=== PATIENT | female | born 1990 | race African-American/Black ===

== ENCOUNTER 2017-09-14 12:11 | Emergency (ER) | payer MEDICAID ==
[~2017-09-14] VITALS: Ht 170.2 cm; Wt 59.0 kg
--- NOTE | 2017-09-14 12:29 | Emergency Room Report ---
History of Present Illness General Chief Complaint: Abdominal Pain Source: Patient Present Illness HPI 26-year-old female presents to the emergency department complaining of 10 out of 10 in severity upper right quadrant abdominal pain and vomiting which has progressed to contain blood. Patient states her symptoms have been ongoing for the past 4 days. Patient states she was recently evaluated and discharged from see emergency department yesterday. Patient states that within 3 hours of being discharged she began vomiting again was unable to take her medications. She denies chest pain or shortness of breath. Patient reports history of type 2 diabetes she takes insulin and states she does not check her sugar regularly. She denies constipation or diarrhea. Denies fevers or chills. Denies , dysuria, hematuria, urinary frequency. Denies CP, Palpitations, LOC, AMS, dizziness, Changes in Vision, Sensation, paresthesias, or a sudden severe headache. Allergies: Coded Allergies: No Known Allergies (Unverified , 09/14/17) Patient History Past Medical History: see triage record Past Surgical History: none Pertinent Family History: none Last Menstrual Period: 09/06/17 Now: No : 2 Para: 1 Reviewed Nursing Documentation: PMH: Agreed; PSxH: Agreed Nursing Documentation-PMH Hx Diabetes: Yes Hx Gastrointestinal Problems: Yes - ulcers Review of Systems All Other Systems: negative except mentioned in HPI Physical Exam Vital Signs Date Time Temp Pulse Resp B/P (MAP) Pulse Ox O2 Delivery O2 Flow Rate FiO2 09/14/17 12:19 98.0 86 18 151/98 100 Room Air 98.1 Sp02 EP Interpretation: reviewed, normal General Appearance: no apparent distress, alert, GCS 15, non-toxic Head: normocephalic, atraumatic Eyes: bilateral eye normal inspection, bilateral eye PERRL ENT: hearing grossly normal, normal voice Neck: full range of motion Respiratory: chest non-tender, lungs clear, normal breath sounds, speaking full sentences Cardiovascular #1: regular rate, rhythm Gastrointestinal: normal bowel sounds, soft, non-distended, no guarding, tenderness - mild RUQ ttp Rectal: deferred Genitourinary: normal inspection, no CVA tenderness Musculoskeletal: back normal, gait/station normal, normal range of motion, non- tender Neurologic: alert, oriented x3, responsive, motor strength/tone normal, sensory intact, speech normal, grossly normal Psychiatric: judgement/insight normal Skin: normal color, no rash, warm/dry, well hydrated Medical Decision Making PA Attestation Dr. Hawkins is my supervising Physician whom patient management has been discussed with. Diagnostic Impression: Primary Impression: Cyclical vomiting Qualified Codes: G43.A0 - Cyclical vomiting, not intractable Additional Impression: Blood glucose elevated ER Course 26-year-old female presents to the emergency department complaining of 10 out of 10 in severity upper right quadrant abdominal pain and vomiting which has progressed to contain blood. Patient states her symptoms have been ongoing for the past 4 days. Patient states she was recently evaluated and discharged from see emergency department yesterday. Patient states that within 3 hours of being discharged she began vomiting again was unable to take her medications. She denies chest pain or shortness of breath. Patient reports history of type 2 diabetes she takes insulin and states she does not check her sugar regularly. She denies constipation or diarrhea. Denies fevers or chills. Denies , dysuria, hematuria, urinary frequency. Denies CP, Palpitations, LOC, AMS, dizziness, Changes in Vision, Sensation, paresthesias, or a sudden severe headache. Ddx considered but are not limited to Diverticulitis, acute appy, diarrhea,UC, PUD, GE, pancreatitis, gallstone,Gastritis, THC cyclical vomiting, hyperglycemia just to name a few. Vital signs: are WNL, pt. is afebrile H&PE are most consistent with Cyclical Vomiting in the presence of elevated glucose and mild ketosis. ORDERS: -Bedside Accu-check: 313 CBC : leukocytosis most likely reactive from vomiting. -CMP: elevated glucose: 340 , normal CO2, mild elevation in anion gap. -Acetone: positive-small -lipase, : WNL -UA: presence of protein , glucose and ketones. -Urine HCG: Negative -UDS: positive for THC and barbiturates. ED INTERVENTIONS: - -1 Liter NS Bolus IV x 2 - Zofran IV -Haldol IM -Viscous Lidocaine PO DISCHARGE: At this time pt. is stable for d/c to home. Will provide printed patient care instructions, and any necessary prescriptions. Care plan and follow up instructions have been discussed with the patient prior to discharge. Labs Test 09/14/17 12:30 09/14/17 12:57 Urine Color Pale yellow Urine Appearance Clear Urine pH 6 (4.5-8.0) Urine Specific [place] 1.015 (1.005-1.035) Urine Protein 2+ (NEGATIVE) Urine Glucose (UA) 4+ (NEGATIVE) Urine Ketones 4+ (NEGATIVE) Urine Occult Blood Negative (NEGATIVE) Urine Nitrite Negative (NEGATIVE) Urine Bilirubin Negative (NEGATIVE) Urine Urobilinogen Normal MG/DL (0.0-1.0) Urine Leukocyte Esterase 1+ (NEGATIVE) Urine RBC 0-2 /HPF (0 - 2) Urine WBC 0-2 /HPF (0 - 2) Urine Squamous Epithelial Cells None /LPF (NONE/OCC) Urine Bacteria None /HPF (NONE) Urine HCG, Qualitative Negative (NEGATIVE) Urine Opiates Screen Negative (NEGATIVE) Urine Barbiturates Screen Positive (NEGATIVE) Phencyclidine (PCP) Screen Negative (NEGATIVE) Urine Amphetamines Screen Negative (NEGATIVE) Urine Benzodiazepines Screen Negative (NEGATIVE) Urine Cocaine Screen Negative (NEGATIVE) Urine Marijuana (THC) Screen Positive (NEGATIVE) White Blood Count 14.3 K/UL (4.8-10.8) Red Blood Count 5.08 M/UL (4.20-5.40) Hemoglobin 15.7 G/DL (12.0-16.0) Hematocrit 44.7 % (37.0-47.0) Mean Corpuscular Volume 88 FL (80-99) Mean Corpuscular Hemoglobin 31.0 PG (27.0-31.0) Mean Corpuscular Hemoglobin Concent 35.2 G/DL (32.0-36.0) Red Cell Distribution Width 10.9 % (11.6-14.8) Platelet Count 175 K/UL (150-450) Mean Platelet Volume 12.1 FL (6.5-10.1) Neutrophils (%) (Auto) % (45.0-75.0) Lymphocytes (%) (Auto) % (20.0-45.0) Monocytes (%) (Auto) % (1.0-10.0) Eosinophils (%) (Auto) % (0.0-3.0) Basophils (%) (Auto) % (0.0-2.0) Differential Total Cells Counted 100 Neutrophils % (Manual) 89 % (45-75) Lymphocytes % (Manual) 7 % (20-45) Monocytes % (Manual) 4 % (1-10) Eosinophils % (Manual) 0 % (0-3) Basophils % (Manual) 0 % (0-2) Band Neutrophils 0 % (0-8) Platelet Estimate Adequate Platelet Morphology Normal Red Blood Cell Morphology Normal Sodium Level 139 MMOL/L (136-145) Potassium Level 3.8 MMOL/L (3.5-5.1) Chloride Level 98 MMOL/L (98-107) Carbon Dioxide Level 24 MMOL/L (21-32) Anion Gap 17 mmol/L (5-15) Blood Urea Nitrogen 12 mg/dL (7-18) Creatinine 0.9 MG/DL (0.55-1.30) Estimat Glomerular Filtration Rate > 60 mL/min (>60) Glucose Level 340 MG/DL (74-106) Calcium Level 10.4 MG/DL (8.5-10.1) Total Bilirubin 1.1 MG/DL (0.2-1.0) Direct Bilirubin 0.2 MG/DL (0.0-0.3) Aspartate Amino Transf (AST/SGOT) 16 U/L (15-37) Alanine Aminotransferase (ALT/SGPT) 20 U/L (12-78) Alkaline Phosphatase 84 U/L (46-116) Total Protein 8.8 G/DL (6.4-8.2) Albumin 4.9 G/DL (3.4-5.0) Globulin 3.9 g/dL Albumin/Globulin Ratio 1.3 (1.0-2.7) Amylase Level 111 U/L (25-115) Lipase 100 U/L (73-393) Acetone Level Positive-small (NEGATIVE) Last Vital Signs Date Time Temp Pulse Resp B/P (MAP) Pulse Ox O2 Delivery O2 Flow Rate FiO2 09/14/17 12:19 98.0 86 18 151/98 100 Room Air 98.1 Disposition: HOME, SELF-CARE Condition: Stable Scripts Ranitidine Hcl* (ZANTAC*) 150 Mg Tablet 150 MG ORAL TWICE A DAY, #20 TAB Prov: Sudha Laboy 09/14/17 Patient Instructions: Cyclic Vomiting Syndrome, Pediatric Additional Instructions: Take medications as directed. *AVOID use of THC over the next week Follow up with a Primary Care Provider in 3-5 days, even if your symptoms have resolved. --Please review list of primary care clinics, if you do not already have a primary care provider Return sooner to ED if new symptoms occur, or current symptoms become worse. - Please note that this Emergency Department Report was dictated using [employer] client advisor technology software, occasionally this can lead to erroneous entry secondary to interpretation by the dictation equipment. Sudha Laboy September 14, 2017 12:29
[2017-09-14] MEDS ORDERED: Metoclopramide 10mg/2ml Inj IVP ONE (12:45)
[2017-09-14 12:46] LABS: APPEARANCE,URINE CLEAR; BILIRUBIN, URINE NEGATIVE (NEGATIVE); COLOR,URINE PALE YELLOW; GLUCOSE, URINE (UA) 4+ (NEGATIVE); KETONES,URINE 4+ (NEGATIVE); LEUKOCYTE ESTERASE ,URINE 1+ (NEGATIVE); NITRITE,URINE NEGATIVE (NEGATIVE); PH,URINE 6 (4.5-8.0); PROTEIN,URINE 2+ (NEGATIVE); UROBILINOGEN,URINE NORMAL MG/DL (0.0-1.0)
[2017-09-14 13:14] LABS: HEMATOCRIT 44.7 % (37.0-47.0); HEMOGLOBIN 15.7 G/DL (12.0-16.0); MEAN CORPUSCULAR VOLUME 88 FL (80-99); PLATELET COUNT 175 K/UL (150-450); RED BLOOD COUNT 5.08 M/UL (4.20-5.40); RED CELL DISTRIBUTION WIDTH 10.9 % (11.6-14.8); WHITE BLOOD COUNT 14.3 K/UL (4.8-10.8)
[2017-09-14 13:20] LABS: ANION GAP 17 mmol/L (5-15); BLOOD UREA NITROGEN 12 mg/dL (7-18); CALCIUM 10.4 MG/DL (8.5-10.1); CARBON DIOXIDE 24 MMOL/L (21-32); CHLORIDE 98 MMOL/L (98-107); CREATININE 0.9 MG/DL (0.55-1.30); POTASSIUM 3.8 MMOL/L (3.5-5.1); SODIUM 139 MMOL/L (136-145)
[2017-09-14 13:30] LABS: ALANINE AMINOTRANSFERASE 20 U/L (12-78); ALBUMIN 4.9 G/DL (3.4-5.0); ALBUMIN/GLOBULIN RATIO 1.3 (1.0-2.7); ALKALINE PHOSPHATASE 84 U/L (46-116); AMYLASE 111 U/L (25-115); ASPARTATE AMINO TRANSFERASE 16 U/L (15-37); BILIRUBIN,TOTAL 1.1 MG/DL (0.2-1.0)
[2017-09-14] MEDS ORDERED: Morphine Sulfate 4mg/ml Inj IVP ONE (13:30)
[2017-09-14 13:33] LABS: BILIRUBIN,DIRECT 0.2 MG/DL (0.0-0.3)
--- NOTE | 2017-09-14 13:37 | Diagnostic Imaging Report ---
Indication: Chest pain Technique: XRAY Chest 1v Comparison: None Findings: Heart size and mediastinal contours are within normal limits given technique. There is no focal consolidation, pneumothorax or pleural effusion. Mild scoliosis of the upper lumbar spine. Osseous structures demonstrate no acute abnormality. Impression: No radiographic evidence of acute cardiopulmonary disease.
--- NOTE | 2017-09-14 13:40 | Diagnostic Imaging Report ---
Indication: Abdominal pain Technique: XRAY Abdomen 1v Comparison: None Findings: Nonspecific bowel gas pattern with overall paucity of bowel gas. There is suggestion of displacement of the hepatic flexure inferiorly. This may suggest hepatomegaly. No evidence to suggest free intraperitoneal air. No acute osseous abnormality seen. No radiopaque foreign body identified. There are some pelvic phleboliths. Imaged lung bases are clear. Impression: Nonspecific bowel gas pattern. Possible displacement of the hepatic flexure inferiorly. This may suggest hepatomegaly. Recommended further evaluation with CT of the abdomen and pelvis with oral and IV contrast as clinically indicated.
[2017-09-14 13:58] VITALS: BP 151/89
[2017-09-14] MEDS ORDERED: Haloperidol 5mg/ml Inj IM ONE (14:15)
[2017-09-14] MEDS ORDERED: Lidocaine 2% Visc 15ml soln ORAL ONE (16:00)
[2017-09-14] MEDS ORDERED: ZANTAC150 MG ORAL (16:48)
[2017-09-14 17:06] VITALS: BP 146/87
== END 2017-09-14 17:09 | disposition home or self-care (01) ==
LOC: EMR 12:39
DX: G43.A0 Cyclical vomiting, in migraine, not intractable (principal); E11.65 Type 2 diabetes mellitus with hyperglycemia; Z87.19 Personal history of other diseases of the digestive system
CPT/HCPCS: 36415; 71045; 74018; 80053; 80307; 81003; 81025; 82009; 82150; 82248; 82962; 83690; 85007; 85025; 96372; 96374; 96375; 99284; J1630; J2765; S0028